=== PATIENT | male | born 1965 | race Two or more races ===

== ENCOUNTER 2019-09-29 06:11 | Day surgery (SDC) | payer OTHER | END 2019-09-29 09:40 | disposition home or self-care (01) | LOC: AMB-ENDOS 06:11 | DX: K64.8 Other hemorrhoids (principal) ==

== ENCOUNTER 2019-10-14 16:00 | Inpatient (IN) | payer OTHER ==
[~2019-10-14] VITALS: Ht 172.7 cm; Wt 83.5 kg
[2019-11-02] MEDS ORDERED: AMLODIPINE-OLM1 EAC3 PO (13:12)
[2019-11-22] MEDS ORDERED: FAMOTIDINE20 MG PO (13:00)
[2019-11-22] MEDS ORDERED: TAMSULOSIN HCL0.4 MG PO (13:00)
[2019-11-22] MEDS ORDERED: INTESTINEX680 M1 PO (13:00)
[2019-11-22] MEDS ORDERED: Neurin-Sl Tablet Sl SL (13:01)
[2019-11-22] MEDS ORDERED: OXYC1TAB9 PO (13:01)
[2019-11-22] MEDS ORDERED: Vitamin B-6 PO (13:01)
[2019-11-22] MEDS ORDERED: AMOX1TAB5 PO (13:02)
[2019-11-22] MEDS ORDERED: LEVSIN/SL0.125 MG SL (13:02)
== END 2019-11-22 13:38 | disposition home or self-care (01) | DRG 330 ==
LOC: O/R 11-09 08:45 → SURH 11-09 08:45 → SURG 11-09 13:00 → SURH 11-09 22:42
PROVIDERS: ADMIT Surgery
PROC: 07BC4ZX Excision of Pelvis Lymphatic, Percutaneous Endoscopic Approach, Diagnostic (ICD-10-PCS; 2019-11-09)
PROC: 0D1B4Z4 Bypass Ileum to Cutaneous, Percutaneous Endoscopic Approach (ICD-10-PCS; 2019-11-09)
PROC: 0DJD8ZZ Inspection of Lower Intestinal Tract, Via Natural or Artificial Opening Endoscopic (ICD-10-PCS; 2019-11-09)
PROC: 0DTN4ZZ Resection of Sigmoid Colon, Percutaneous Endoscopic Approach (ICD-10-PCS; principal; 2019-11-09 13:00)
PROC: BT4JZZZ Ultrasonography of Kidneys and Bladder (ICD-10-PCS; 2019-11-13)
PROC: BW21Y0Z Computerized Tomography (CT Scan) of Abdomen and Pelvis using Other Contrast, Unenhanced and Enhanced (ICD-10-PCS; 2019-11-16)
DX: C20 Malignant neoplasm of rectum (principal); K56.690 Other partial intestinal obstruction; R19.4 Change in bowel habit; R59.0 Localized enlarged lymph nodes; K63.89 Other specified diseases of intestine; I11.9 Hypertensive heart disease without heart failure; K91.0 Vomiting following gastrointestinal surgery; D69.59 Other secondary thrombocytopenia

== ENCOUNTER 2019-11-24 22:02 | Inpatient (IN) | payer OTHER ==
[~2019-11-24] VITALS: Ht 172.7 cm; Wt 76.2 kg
[~2019-11-24 22:02] MED LIST: AMLODIPINE-OLM1 EAC3 PO; AMOX1TAB5 PO; FAMOTIDINE20 MG PO; INTESTINEX680 M1 PO; LEVSIN/SL0.125 MG SL; Neurin-Sl Tablet Sl SL; OXYC1TAB9 PO; TAMSULOSIN HCL0.4 MG PO; Vitamin B-6 PO
[2019-11-26] MEDS ORDERED: ABANEU-SL TABL1 EACH (08:12)
[2019-11-26] MEDS ORDERED: VITAMIN B-625 MG (08:13)
== END 2019-12-02 10:46 | disposition home or self-care (01) | DRG 394 ==
LOC: ER 22:02 → SURH 11-25 12:06
PROVIDERS: ADMIT Surgery
PROC: BW21ZZZ Computerized Tomography (CT Scan) of Abdomen and Pelvis (ICD-10-PCS; principal; 2019-11-25)
PROC: 0DH67UZ Insertion of Feeding Device into Stomach, Via Natural or Artificial Opening (ICD-10-PCS; 2019-11-26)
PROC: 3E0G76Z Introduction of Nutritional Substance into Upper GI, Via Natural or Artificial Opening (ICD-10-PCS; 2019-11-26)
PROC: 3E0436Z Introduction of Nutritional Substance into Central Vein, Percutaneous Approach (ICD-10-PCS; 2019-11-29)
PROC: 02HV33Z Insertion of Infusion Device into Superior Vena Cava, Percutaneous Approach (ICD-10-PCS; 2019-11-29)
DX: K94.19 Other complications of enterostomy (principal); K56.690 Other partial intestinal obstruction; C20 Malignant neoplasm of rectum; E44.0 Moderate protein-calorie malnutrition; L03.311 Cellulitis of abdominal wall; K29.00 Acute gastritis without bleeding

== ENCOUNTER 2020-08-04 07:36 | Outpatient (CLI) | payer OTHER ==
[~2020-08-04 07:36] MED LIST changes: +ABANEU-SL TABL1 EACH; +VITAMIN B-625 MG
== END 2020-08-04 08:03 | disposition home or self-care (01) ==
LOC: RX STUDY 07:36
PROVIDERS: ATTEND Surgery
DX: C20 Malignant neoplasm of rectum (principal); R19.5 Other fecal abnormalities; R19.4 Change in bowel habit

== ENCOUNTER 2020-08-26 16:30 | Inpatient (IN) | payer OTHER ==
[~2020-08-26] VITALS: Ht 172.7 cm; Wt 83.9 kg
[~2020-08-26 16:30] MED LIST changes: +CENTRUM ADULTS1 EACH PO
[2020-09-07] MEDS ORDERED: IMODIUM A-D2 M2 PO (08:19)
[2020-09-07] MEDS ORDERED: CHOLESTYRAMINE P4 GM PO (08:19)
[2020-09-07] MEDS ORDERED: PERCOCET 5-3251 EACH PO (08:20)
[2020-09-07] MEDS ORDERED: INTESTINEX680 M1 PO (08:20)
[2020-09-07] MEDS ORDERED: FLAGYL500MG PO (08:21)
[2020-09-07] MEDS ORDERED: PEPCID AC20 MG PO (08:21)
[2020-09-07] MEDS ORDERED: KETO10TA2 PO (08:25)
== END 2020-09-07 15:11 | disposition home or self-care (01) | DRG 330 ==
LOC: O/R 09-01 04:58 → SURG 09-01 04:58 → SURH 09-01 10:00 → SURG 09-01 11:52
PROVIDERS: ADMIT Surgery; ATTEND Surgery
PROC: 0DSB4ZZ Reposition Ileum, Percutaneous Endoscopic Approach (ICD-10-PCS; principal; 2020-09-01 10:00)
DX: C20 Malignant neoplasm of rectum (principal); N17.8 Other acute kidney failure; L03.311 Cellulitis of abdominal wall; K91.30 Postprocedural intestinal obstruction, unspecified as to partial versus complete; K29.60 Other gastritis without bleeding; D64.9 Anemia, unspecified; D69.6 Thrombocytopenia, unspecified; R19.5 Other fecal abnormalities; I11.9 Hypertensive heart disease without heart failure; Z93.2 Ileostomy status

== ENCOUNTER 2025-08-23 06:00 | Day surgery (SDC) | payer OTHER ==
[2025-08-18 09:14] LABS: BASO % 0.6 % (0.1-1.2); EOS # 0.06 (0.04-0.54); EOS % 1.3 % (0.7-7.0); LYMPH # 0.55 (1.18-3.74); LYMPH % 11.7 % (19.3-53.1); MEAN PLATELET VOLUME 10.10 fl (9.4-12.4); MONO # 0.28 (0.24-0.82); MONO % 5.9 % (4.7-12.5); NEUT # 3.80 (1.56-6.13); NEUT % 80.5 % (34.0-71.1); RED CELL DISTRIBUTION WIDTH 12.7 % (11.6-14.4)
[2025-08-18 09:24] VITALS: BP 149/90
[2025-08-18 09:45] LABS: INR 1.1
[2025-08-18 09:54] LABS: ALT/SGPT 20.0 U/L (12-78); AST/SGOT 11.0 U/L (15-37); BILIRUBIN TOTAL 1.02 mg/dL (0.3-1.2); BUN CREA RATIO 25.0 (7.0-25.0); CREATININE SERUM 0.52 mg/dL (0.70-1.30); GFR 161.56; GLOBULINA 3.2 G/DL (2.4-3.5); GLUCOSE FASTING 85.0 mg/dL (65-100); OSMOLALITY SERUM 284.0 MOSM/KG (275-295)
[2025-08-18 10:17] LABS: URINE APPEARANCE Clear; URINE BILIRRUBIN Negative (NEGATIVE); URINE COLOR Yellow; URINE GLUCOSE Negative (NEGATIVE); URINE KETONE Negative (NEGATIVE); URINE LEUKOCYTE Negative; URINE NITRATE Negative; URINE PROTEIN Negative (NEGATIVE); URINE UROBILINOGEN 0.2 E.U./dl
[2025-08-18 10:19] LABS: URINE BACTERIA 4.7 uL (0.0-1933); URINE RBC 19.5 uL (0.0-20.8); URINE WBC 1.8 uL (0.0-23.2)
[2025-08-18 10:23] LABS: URINE BLOOD TRACES; URINE CAST 0.00 uL (0.0-1.40); URINE EPITHELIAL CELLS 0.7 uL (0.0-38.8)
[~2025-08-23] VITALS: Ht 172.7 cm; Wt 82.6 kg
[~2025-08-23 06:00] MED LIST changes: +AMLODIPINE-OLM1 EACH PO; +CHOLESTYRAMINE P4 GM PO; +FLAGYL500MG PO; +IMODIUM A-D2 M2 PO; +KETO10TA2 PO; +PEPCID AC20 MG PO; +PERCOCET 5-3251 EACH PO; +TAMS0.4C PO; +ZESTRIL10 M1 PO
[2025-08-23] MEDS ORDERED: CEFAZOLIN SODIUM 1,000 MG VIAL ONE (08:55)
[2025-08-23] MEDS ORDERED: HEPARIN SODIUM,PORCINE/PF 100 UNIT/ML SYRINGE IV ONE ×2 (09:27)
[2025-08-23] MEDS ORDERED: BUPIVACAINE HCL/MPF 0.5% 30ML VIAL ONE (09:56)
[2025-08-23] MEDS ORDERED: LIDOCAINE HCL 1%/EPINEPHRINE 20ML VIAL IJ ONE (09:56)
[2025-08-23] MEDS ORDERED: TRAM1TAB98 PO (10:54)
== END 2025-08-23 13:15 | disposition home or self-care (01) ==
LOC: CIR.AMB 06:00
PROVIDERS: ATTEND Surgery
DX: C20 Malignant neoplasm of rectum (principal); T82.594A Other mechanical complication of infusion catheter, initial encounter
CPT/HCPCS: 36561; 36590; C1751